=== PATIENT | female | born 1950 | race African-American/Black ===

== ENCOUNTER 2021-03-10 10:26 | Day surgery (SDC) | payer OTHER ==
[~2021-03-10] VITALS: Ht 162.6 cm; Wt 65.9 kg
[~2021-03-10 10:26] MED LIST: CALC500T30 PO; CHONDROIT-SOD-HYALURONATE KIT. ONE; CHONDROITIN-SOD-HYALURONATE 0.5 ML DISP.SYRIN. ONE; CLOP75TA PO; CYCL10TA19 PO; HYDROmorphone 2 MG/ML INJ. IVP PRN; IV RINGERS,LACTATED 1000ML 1,000 ML IV SCH; LIDOCAINE 1% PF 2 ML VIAL. ONE; LIDOCAINE 2% JELLY 6ML IN APPLICATOR. ONE; LIPITOR80 MG PO; MORPHINE SULFATE 2 MG/ML INJ. IVP PRN; NEO/POLYMYX/DEXAMETH OPHTH OINTMENT 3.5GM TUBE. ONE; NIFE60TA41 PO; PROCHLORPERAZINE 10 MG/2 ML VIAL. IVP PRN; TRAM50TA PO; ZOLP10TA PO; fentaNYL PF VIAL 100 MCG/2 ML VIAL IVP PRN
[2021-03-10 11:03] VITALS: BP 151/78
[2021-03-10] MEDS: PHENYLEPHRINE 10% OPHTH SOLUTION 5ML BOTTLE. OD SCH ×3 (11:55→12:06)
[2021-03-10] MEDS ORDERED: PROPARACAINE 0.5% OPHTH SOLUTION 15ML BOTTLE. OD ONE (12:00)
[2021-03-10] MEDS ORDERED: LIDOCAINE 2% JELLY 6ML IN APPLICATOR. OD ONE (12:00)
[2021-03-10] MEDS ORDERED: CIPROFLOXACIN 0.3% OPHTH SOLUTION 5ML BOTTLE. OD ONE (12:00)
[2021-03-10] MEDS: CYCLOPENTOLATE 1% OPHTH SOLUTION 2ML BOTTLE. OD SCH ×3 (12:12→12:25)
[2021-03-10] MEDS ORDERED: PHENYLEPHRINE in 0.9% NACL PF 1 MG/10 ML SYRINGE. IV ONE (12:30)
[2021-03-10] MEDS ORDERED: LIDOCAINE 1%/PHENYLEPH 1.5% PF OPHTH 1 ML VIAL. ONE (12:33)
[2021-03-10] MEDS ORDERED: MIDAZOLAM HCL/PF 2 MG/2 ML VIAL. ONE (12:40)
[2021-03-10] MEDS ORDERED: CHONDROIT-SOD-HYALURONATE KIT. ONE (13:21)
--- NOTE | 2021-03-10 13:43 | OP ---
DATE OF SURGERY: 03/10/2021 PREOPERATIVE DIAGNOSIS: Cataract of the right eye. PROCEDURE: Phacoemulsification with posterior chamber intraocular lens implantation of the right eye. SURGEON: Pita Calvin MD ANESTHESIA: Topical with monitored anesthesia care. DESCRIPTION OF PROCEDURE: The right eye was marked with the toric marker for the axis to be at 96 for the toric intraocular lens. Betadine was then used to sterilize the eye in the usual sterile fashion and draped. A paracentesis was performed followed by instillation of preservative-free phenylephrine admixed with balanced salt solution and lidocaine. A temporal clear corneal incision was made followed by instillation of Viscoat. A capsulorrhexis was performed, followed by hydrodissection. The phacoemulsification handpiece was used to remove the nucleus in a modified stop and chop fashion. The I/A handpiece was used to remove the cortex. Provisc was injected in the anterior chamber. An Luis Daniel model [id number] was placed into the capsular bag and oriented with the markings at 96 degrees, which had been premarked. Once all of the viscoelastic had been removed, the lens was stable and Maxitrol was placed on the eye and the eye shielded and the patient was sent to the recovery room uneventfully. NANCY DR: Manuel TID: [id number]
[2021-03-10] MEDS ORDERED: acetaZOLAMIDE 250 MG TABLET. PO ONE (14:15)
[2021-03-10 14:33] VITALS: BP 177/82
== END 2021-03-10 14:14 | disposition home or self-care (01) ==
LOC: SURG 10:26
PROVIDERS: ATTEND Ophthalmology
DX: H25.89 Other age-related cataract (principal); I10 Essential (primary) hypertension; E78.00 Pure hypercholesterolemia, unspecified; M19.90 Unspecified osteoarthritis, unspecified site; Z87.891 Personal history of nicotine dependence; Z79.899 Other long term (current) drug therapy; Z90.49 Acquired absence of other specified parts of digestive tract; Z98.51 Tubal ligation status; Z98.890 Other specified postprocedural states; Z88.0 Allergy status to penicillin
CPT/HCPCS: 66984; J0171; J2250; J3490; V2632; A4222; J2370

== ENCOUNTER 2021-03-17 09:23 | Day surgery (SDC) | payer OTHER ==
[~2021-03-17] VITALS: Ht 162.6 cm; Wt 65.9 kg
[~2021-03-17 09:23] MED LIST changes: +BALANCED SALT IRRIG OPHTH SOLN 15 ML BOTTLE. ONE; +CIPROFLOXACIN 0.3% OPHTH SOLUTION 5ML BOTTLE. OS ONE; +GENTAMICIN SULFATE/PF 4 MG, EPINEPHrine 0.5 MG in BALANCED SALT IRR SOLN (BAG) 500 ML IO ONE; -HYDROmorphone 2 MG/ML INJ. IVP PRN; +LIDOCAINE 1%/PHENYLEPH 1.5% PF OPHTH 1 ML VIAL. ONE; +LIDOCAINE 2% JELLY 6ML IN APPLICATOR. OS ONE; -MORPHINE SULFATE 2 MG/ML INJ. IVP PRN; -PROCHLORPERAZINE 10 MG/2 ML VIAL. IVP PRN; +PROPARACAINE 0.5% OPHTH SOLUTION 15ML BOTTLE. OS ONE; -fentaNYL PF VIAL 100 MCG/2 ML VIAL IVP PRN
[2021-03-17 09:46] VITALS: BP 140/98
[2021-03-17] MEDS: PHENYLEPHRINE 10% OPHTH SOLUTION 5ML BOTTLE. OS SCH ×3 (09:55→10:05)
[2021-03-17] MEDS: CYCLOPENTOLATE 1% OPHTH SOLUTION 2ML BOTTLE. OS SCH ×3 (09:55→10:05)
[2021-03-17 12:33] VITALS: BP 160/80
--- NOTE | 2021-03-17 12:56 | OP ---
DATE OF SURGERY: 03/17/2021 PREOPERATIVE DIAGNOSIS: Incipient cataract of the left eye. PROCEDURE: Phacoemulsification with posterior chamber intraocular lens implantation with capsular staining and toric lens implant. SURGEON: Pita Calvin MD. ANESTHESIA: Topical with monitored anesthesia care. DESCRIPTION: Prior to sterilization of the service with Betadine, a toric marker was used to eric the axis at 104 and then Betadine was placed in the eye, prepped with Betadine in the usual sterile fashion. A paracentesis was performed followed by instillation of preservative-free phenylephrine admixed with epinephrine and balanced salt solution. A temporal clear corneal incision was made followed by instillation of Viscoat. A capsulorrhexis was performed, followed by hydrodissection and the phacoemulsification handpiece was used to remove the nucleus in a modified stop and chop fashion. The I/A handpiece was used to remove the cortex and Provisc was placed into the anterior chamber. A toric lens Luis Daniel [id number] with a power of 24.5 diopters was placed into the capsular bag with an orientation approximately 15 degrees counterclockwise to the premarked axis. Once the Provisc and all the viscoelastic had been removed, the lens was reoriented with rock on the cornea with an axis of 104 degrees. Balanced salt solution was used to hydrate the corneal wounds and no leak was noted, Maxitrol was placed on the eye and the eye shielded and the patient was sent to the recovery room uneventfully. Please note that prior to the capsulorrhexis Trypan blue was used under air to stain the anterior capsule, which was done uneventfully. A capsulorrhexis was then adequately visualized and performed and this was necessary due to the poor red reflex from the advanced incipient cataract. Thank you for this addendum. FLAVIO MODI: Manuel TID: [id number]
== END 2021-03-17 12:40 | disposition home or self-care (01) ==
LOC: SURG 09:23 → EDUNIT# 11:30 → SURG 12:40
PROVIDERS: ATTEND Ophthalmology
DX: H25.092 Other age-related incipient cataract, left eye (principal); I10 Essential (primary) hypertension; E78.00 Pure hypercholesterolemia, unspecified; M19.90 Unspecified osteoarthritis, unspecified site; Z90.49 Acquired absence of other specified parts of digestive tract; Z98.51 Tubal ligation status; Z98.890 Other specified postprocedural states; Z87.891 Personal history of nicotine dependence; Z88.0 Allergy status to penicillin; Z86.73 Personal history of transient ischemic attack (TIA), and cerebral infarction without residual deficits
CPT/HCPCS: 66984; A4930; J0171; J1580; J3490; V2632